=== PATIENT | female | born 1980 | race Caucasian/White ===

== ENCOUNTER 2021-05-06 10:14 | Outpatient (REF) | payer OTHER, SELFPAY ==
--- NOTE | ~2021-05-06 | XR_ITS ---
EXAMINATION: XR HIP, LEFT CLINICAL INFORMATION: Pain COMPARISON: None TECHNIQUE: Two views of the left hip. FINDINGS: Bones and soft tissues are normal. No fracture. Alignment is anatomic. Hip joint space is maintained. XR/XR hip LT min 2V IMPRESSION: Unremarkable left hip exam.
== END 2021-05-06 10:15 | disposition home or self-care (01) ==
LOC: HO.XRAY 10:14
PROVIDERS: PCP Internal Medicine; Visit Provider Internal Medicine
DX: M25.552 Pain in left hip (principal)
CPT/HCPCS: 73502

== ENCOUNTER 2021-10-04 09:00 | Outpatient (RCR) | payer OTHER, SELFPAY | END 2021-10-04 10:11 | disposition home or self-care (01) | LOC: HO.PT 09:00 | PROVIDERS: PCP Internal Medicine; Visit Provider Internal Medicine | DX: M25.552 Pain in left hip (principal) | CPT/HCPCS: 97110; 97112; 97116; 97140; 97162; 97530 ==

== ENCOUNTER 2022-10-14 11:14 | Outpatient (REF) | payer OTHER, SELFPAY ==
--- NOTE | ~2022-10-14 | US_ITS ---
EXAMINATION: US PELVIS CLINICAL INFORMATION: Excessive and frequent menses; the last menstrual period was on 09/17/2022. COMPARISON: None TECHNIQUE: Ultrasound of the pelvis is performed using both transabdominal and transvaginal transducers along with Doppler. Transvaginal imaging is performed due to inadequate visualization transabdominally. FINDINGS: Uterus: The uterus is anteverted and anteflexed. The uterus measures 7.5 x 2.9 x 4.2 cm. Nabothian cysts are seen within the cervix. The double wall endometrial thickness is 0.6 mm. The uterus is smooth in contour and has normal myometrial echogenicity. No visible fibroid. Adnexa: Both ovaries are visualized. There is normal color flow to the adnexa. There is no ovarian torsion. There is no pelvic ascites or fluid collection. Right ovary measures 2.0 x 2.2 x 2.0 cm, volume 4.7 mL. The right ovary contains a dominant benign, simple follicle measuring 1.3 x 1.1 x 1.6 cm. Left ovary measures 2.3 x 1.5 x 1.5 cm, volume 2.8 mL. The left ovary contains a dominant benign, simple follicle measuring 1.3 x 1.4 x 1.3 cm. US/US pelvic and transvaginal IMPRESSION: 1. Benign, simple bilateral ovarian dominant follicles are noted, which require no imaging follow-up. 2. Nabothian cysts are seen within the cervix.
== END 2022-10-14 11:15 | disposition home or self-care (01) ==
LOC: HO.US 11:14
PROVIDERS: Visit Provider Advanced Practice Midwife
DX: N92.1 Excessive and frequent menstruation with irregular cycle (principal)
CPT/HCPCS: 76830; 76856

== ENCOUNTER 2024-05-06 09:07 | Outpatient (REF) | payer OTHER, SELFPAY ==
[2024-05-06 14:21] LABS: MANUAL DIFF FLAG NO
[2024-05-06 14:25] LABS: Basophils Percent Auto 0.5 % (0-2); Eosinophils Absolute Auto 0.1 X10*3/uL (0.0-0.4); Eosinophils Percent Auto 0.8 % (0-4); Hematocrit 43.4 % (37.0-47.0); Hemoglobin 14.6 g/dl (12.0-16.0); Imm Gran Abs Auto 0.02 X10*3/uL (0.00-0.03); Imm Gran Pct Auto 0.3 % (0.0-0.4); Lymphocytes Absolute Auto 1.7 X10*3/uL (1.2-4.9); Lymphocytes Percent Auto 26.6 % (20-40); Mean Corpuscular HGB Conc 33.6 g/dl (31.0-35.0); Mean Corpuscular Hemoglobin 31.7 pg (27.0-33.0); Mean Corpuscular Volume 94.3 fL (80.0-98.0); Mean Platelet Volume 9.6 fL (9.4-12.3); Monocytes Absolute Auto 0.5 X10*3/uL (0.1-1.2); Monocytes Percent Auto 7.7 % (2-11); Neutrophils Percent Auto 64.1 % (45-73); Platelet Count 297 X10*3/uL (160-400); Red Cell Distribution Width 11.8 % (11.0-16.0); White Blood Count 6.3 X10*3/uL (4.8-10.8)
[2024-05-06 15:07] LABS: Alanine Aminotransferase 14 U/L (0-31); Alkaline Phosphatase 46 U/L (39-117); Anion Gap 11 (12-20); Aspartate Amino Transferase 13 U/L (5-31); Bilirubin Total 0.4 mg/dL (0.0-1.0); Blood Urea Nitrogen 14 mg/dL (9-16); Calcium 9.1 mg/dL (8.4-10.2); Carbon Dioxide 26 mmol/L (22-29); Chloride 107 mmol/L (96-108); Cholesterol 188 mg/dL (<200); Estimated Glomerular Filt Rate > 60; Glucose Random 86 mg/dL (60-115); HDL Cholesterol 53 mg/dL (>40); LDL Cholesterol Calculated 120 mg/dL (<100); Potassium 3.6 mmol/L (3.3-5.1); Sodium 140 mmol/L (135-145); Total Protein 6.6 g/dL (6.5-8.0); Triglycerides 78 mg/dL (<150)
== END 2024-05-06 09:08 | disposition home or self-care (01) ==
LOC: HO.CHCLDS 09:07
PROVIDERS: Visit Provider Internal Medicine
DX: Z00.00 Encounter for general adult medical examination without abnormal findings (principal)
CPT/HCPCS: 36415; 80053; 80061; 84443; 85025

== ENCOUNTER 2024-06-07 10:03 | Outpatient (AMB) | payer OTHER, SELFPAY ==
--- NOTE | 2024-06-07 10:28 | A.OFFVIS_ITS ---
Vital Signs 06/07/24 10:39 Height 5 ft 5 in Weight 139 lb BMI 23.1 BP 104/66 Intake Visit Reasons: premenstrual sx/referral Intake Note: Last pap 1yr normal hx @[facility] pt c/o night sweats, cramps, breast tenderness, acne, anger with periods, insomnia week before period Computer Systems Engineer: Computer Systems Engineer Present Allergies penicillamine [Cuprimine] Allergy (Unknown, Verified 06/07/24 10:29) vomiting CILANTRO Allergy (Unknown, Uncoded 08/13/20 19:31) UNKNOWN Is last menstrual period known: Yes Last menstrual period: 05/21/24 HPI Comments Details: Roma is here for a new patient consult referred by her nurse operator ground based air defence from the [facility] to discuss her pre menstrual symptoms and concerns. She reports insomnia onset shortly before her menstrual cycle, sweating, anxiety, and mood changes. Menstrual cycles are regular every 24 days. She tried control low dose in the past, did not like the side effects and felt severely depressed after discontinuing it due to other symptoms. Reports her primary care gave her Paxil, that her made her feel extremely off as though she felt high, and had a sensation of cold water running down her head, and not in a good place and discontinued that medication. Hydroxyzine did not help with her insomnia. She has used Melatonin. She reports prior endometrial biopsy results that was negative. No lab work or ultrasounds or pertinent reports are noted in the referral notes today. She reports a gluten and dairy free diet. She walks daily 30 minutes. [facility] Surgical History (Updated 06/07/24 @ 10:30 by TYSHAWN Diaz) Hx of section Family History (Updated 06/07/24 @ 10:30 by TYSHAWN Diaz) Paternal Grandmother Colon cancer Social History (Updated 06/07/24 @ 10:31 by TYSHAWN Diaz) Alcohol intake: current Alcohol intake frequency: a few times a month Patient Tobacco Use Status: Never used Tobacco Sexual orientation: Straight/Heterosexual Gender identity: Female Female Reproductive History Menstrual Age of Menarche: 11 Duration of menses: 6-7 days Date of last menstrual period: 05/21/24 control method: other (Vasectomy) Total pregnancies: 1 Full term: 1 Number of Living Children: 1 Review of Systems Const All systems reviewed & are unremarkable except as noted in HPI and below Endo Reports no additional complaints Physical Exam Vital Signs: Last Vital Signs BP 104/66 06/07/24 10:39 BMI result Body Mass Index 23.1 Const General: cooperative, healthy appearing and no acute distress Psych Appearance: well kempt Attitude: cooperative Thought process: Normal thought process present Assessment & Plan Assessment & Plan (1) Pre-menstrual syndrome: Code(s): N94.3 - Premenstrual tension syndrome Plan Discussed: Perimenopausal changes, options for treating PMS and menstrual concerns include- OCPs, other modalities for contraception, SSRIs, nutritional and exercise benefits, vitamin, probiotics and homeopathic supplementations. Functional health medicine alternative. Release sign a records for labs ultrasounds biopsies and notes from primary care and her last marketing professor practice or any other pertinent practices. Follow up in 4 months to check her progress or call sooner if there is any concerns. All of her questions and concerns were addressed to the best of my ability and shared decision making. She is agreeable to the plan of care. This note is constructed using voice recognition software. While every effort has been made to ensure accuracy, railroad car inspector errors may have been included. Coding Level of Care Code New Pt Level 3 (18901) Diagnoses Pre-menstrual syndrome N94.3
[2024-06-07 10:39] VITALS: BP 104/66; BMI 23.1
== END 2024-06-07 11:14 | disposition home or self-care (01) ==
LOC: HO.HWS 10:03
PROVIDERS: PCP Internal Medicine; Visit Provider Advanced Practice Midwife
DX: N94.3 Premenstrual tension syndrome (principal)
CPT/HCPCS: 99203

== ENCOUNTER → 2024-06-07 10:03 | Outpatient (BNVA) | payer OTHER, SELFPAY | PROVIDERS: PCP Internal Medicine; Visit Provider Advanced Practice Midwife ==

== ENCOUNTER 2024-12-03 09:05 | Outpatient (AMB) | payer OTHER, SELFPAY ==
--- NOTE | 2024-12-03 09:07 | A.OFFVIS_ITS ---
Intake Visit Reasons: 4 month follow up Credit And Collections Representative: Credit And Collections Representative Present (Ave) Accompanied by: Self / Same As Patient Allergies penicillamine [Cuprimine] Allergy (Unknown, Verified 12/03/24 09:07) vomiting CILANTRO Allergy (Unknown, Uncoded 08/13/20 19:31) UNKNOWN Is last menstrual period known: Yes Last menstrual period: 11/08/24 HPI Comments Details: Patient is here today for a follow up on her premenstrual syndrome symptoms, she reports she is feeling much better after following healthy diet with exercise and starting the supplements for Women's supply hormonal support along with a multivitamin with the Women's Health focus. PFSH Surgical History (Updated 06/07/24 @ 10:30 by TYSHAWN Diaz) Hx of section Family History (Updated 06/07/24 @ 10:30 by TYSHAWN Diaz) Paternal Grandmother Colon cancer Social History (Updated 06/07/24 @ 10:31 by TYSHAWN Diaz) Alcohol intake: current Alcohol intake frequency: a few times a month Patient Tobacco Use Status: Never used Tobacco Sexual orientation: Straight/Heterosexual Gender identity: Female Female Reproductive History Menstrual Age of Menarche: 11 Duration of menses: 3-5 days Date of last menstrual period: 11/08/24 Review of Systems Const All systems reviewed & are unremarkable except as noted in HPI and below Endo Reports no additional complaints Physical Exam Const General: cooperative, healthy appearing and no acute distress Psych Appearance: well kempt Attitude: cooperative Thought process: Normal thought process present Assessment & Plan Assessment & Plan (1) Pre-menstrual syndrome: Code(s): N94.3 - Premenstrual tension syndrome Plan Discussed: Healthy lifestyle, hormonal disruption, multivitamins and supplements. Plan- schedule mammogram, and book an annual exam. The patient expressed understanding and agreement with the plan of care. All of her questions and concerns were addressed to the best of my ability. This note is constructed using voice recognition software. While every effort has been made to ensure accuracy, digital engineer errors may have been included. Orders: Orders MM tomosynthesis screening BI Today Z12.31 - Encounter for screening mammogram for malignant neoplasm of breast Coding Level of Care Code Est Pt Level 3 (70373) Diagnoses Pre-menstrual syndrome N94.3
== END 2024-12-03 10:10 | disposition home or self-care (01) ==
LOC: HO.HWS 09:05
PROVIDERS: PCP Internal Medicine; Visit Provider Advanced Practice Midwife
DX: N94.3 Premenstrual tension syndrome (principal)
CPT/HCPCS: 99213

== ENCOUNTER → 2024-12-25 08:15 | Outpatient (BNV) | payer OTHER, SELFPAY | PROVIDERS: PCP Internal Medicine; Visit Provider Internal Medicine | DX: Z12.31 Encounter for screening mammogram for malignant neoplasm of breast (principal) | CPT/HCPCS: 77063; 77067 ==

== ENCOUNTER 2024-12-25 08:17 | Outpatient (REF) | payer OTHER, SELFPAY | END 2024-12-25 08:18 | disposition home or self-care (01) | LOC: HO.MAMMO 08:17 | PROVIDERS: PCP Internal Medicine; Visit Provider Advanced Practice Midwife | DX: Z12.31 Encounter for screening mammogram for malignant neoplasm of breast (principal) | CPT/HCPCS: 77063; 77067 ==

== ENCOUNTER 2025-03-06 09:03 | Outpatient (AMB) | payer OTHER, SELFPAY ==
--- NOTE | 2025-03-06 09:05 | MHC.OFFVIS ---
Vital Signs 03/06/25 09:07 Height 5 ft 5 in Weight 140 lb BMI 23.3 BP 100/60 Intake Visit Reasons: MEDICAL ACCOUNTS RECEIVABLE SPECIALIST annual exam Open Hearth Stockyard Supervisor: Open Hearth Stockyard Supervisor Present (Vianney) Allergies penicillamine [Cuprimine] Allergy (Unknown, Verified 03/06/25 09:07) vomiting CILANTRO Allergy (Unknown, Uncoded 08/13/20 19:31) UNKNOWN Is last menstrual period known: Yes Last menstrual period: 02/21/25 HPI Comments Details: She is a premenopausal woman presenting for annual examination. Doing well with no smoke and flame specialist concerns. Regular monthly menses, heavy 2/5d. Taking natural supplements for perimenopause, does not want hormones. Currently is sexually active, had a vasectomy. She denies vaginal itching and irritation. STI screening offered; she declines. She tries to eat healthy and stays active with exercise. Denies family history of breast or ovarian. FH colon cancer. Last pap smear 2020, negative per pt. not included with records. Mammogram: 2024. PFSH Surgical History Hx of section Family History Paternal Grandmother Colon cancer Social History Alcohol intake: current Alcohol intake frequency: a few times a month Patient Tobacco Use Status: Never used Tobacco Current occupation: senior designer Sexual orientation: Straight/Heterosexual Gender identity: Female Female Reproductive History Menstrual Age of Menarche: 11 Duration of menses: 3-5 days Date of last menstrual period: 02/21/25 control method: other (vasectomy) Total pregnancies: 1 Full term: 1 Number of Living Children: 1 Date of last pap smear: 08/27/24 (neg pap and hpv) Date of Mammogram: 12/25/24 (Birad 1) Review of Systems Const All systems reviewed & are unremarkable except as noted in HPI and below Reports as per HPI Eyes Reports no additional complaints ENT Reports no additional complaints Card Reports no additional complaints Resp Reports no additional complaints GI Reports as per HPI and Reports no additional complaints Reports as per HPI Musc Reports no additional complaints Skin/Breast Reports as per HPI Neuro Reports no additional complaints Psych Reports no additional complaints Endo Reports no additional complaints Zacarias/Lymph Reports no additional complaints Aller/Immun Reports no additional complaints Physical Exam Vital Signs: Last Vital Signs BP 100/60 03/06/25 09:07 BMI result Body Mass Index 23.3 Const General: cooperative, healthy appearing, no acute distress, well developed and alert Orientation/consciousness: patient oriented x3 HEENT Head: Yes normal to inspection Eyes General: appearance normal, both eyes and all related structures Neck Neck: Yes normal visual inspection Thyroid: Thyroid normal Chest Chest palpation & inspection: normal inspection of the chest and other (no puckering, dimpling, peau de orange, retraction, discharge, masses) Breast/axilla inspection: normal inspection of the breasts Breast/axilla palpation: normal palpation of the breasts Resp Effort & Inspection: normal respiratory effort GI Inspection: Yes normal to inspection Palpation (GI): Soft to palpation Rectal Exam - Female: deferred General: Yes bladder normal to palpation External Female Exam: normal external appearance and normal appearance of the urethra Speculum Exam - Vagina: normal appearance of the vagina, normal palpation and normal vaginal discharge Speculum Exam - Cervix: normal appearance of the cervix and normal palpation Bimanual exam- vagina & uterus: normal bimanual exam, normal palpation, uterine size normal, bladder normal to palpation, normal palpation and non-tender Bimanual Exam- Adnexa, other: no masses Skin General skin exam: no rashes or lesions noted Rashes: no rashes Neuro General: patient oriented x3 Cognition (Neuro): normal cognition Extrem General: Yes normal to inspection Psych Attitude: cooperative Thought process: Normal thought process present Assessment & Plan Assessment & Plan (1) Encounter for well woman exam with routine gynecological exam: Code(s): Z01.419 - Encounter for gynecological examination (general) (routine) without abnormal findings Category: Medical Plan Discussed: Current recommendations for pap smears per ASCCP guidelines. Sign release pap record. Breast awareness and periodic breast exams. Mammogram yearly. Maintain a healthy lifestyle including a well balanced diet and routine exercise. Patient verbalizes understanding and agrees to the plan of care. She was given opportunity to ask questions and all questions were answered to the best of my ability. RTO in one year for annual smoke and flame specialist examination. This note is constructed using voice recognition software. While every effort has been made to ensure accuracy, filling machine operator errors may have been included. Coding Level of Care Code Est Pt Prev Care 40-64y(78645) Diagnoses Encounter for well woman exam with routine gynecological exam Z01.419
[2025-03-06 09:07] VITALS: BP 100/60; BMI 23.3
--- OUTSIDE RECORDS SUMMARY | 2025-03-06 09:37 | XMS_ITS | Encounter Summary ---
Author Organization [employer] Address [address] [place] [address] [address] [place] [address] Care Team Providers Care Cnc Machinist Name Role Phone Urvashi Seymour MD Primary Care Provider [phone] Encounter Details Date Type Department Care Team (Late Contact Info) Description 11/16/2022 Orders Only [facility] [address] [place] [address] Michell Jackson, [facility] [address] [place] [address] Social History Tobacco Use Types Packs/Day Years Used Date Smoking Tobacco: Never Passive Smoke Exposure: Never Smokeless Tobacco: Never Alcohol Use Standard Drinks/Week Comments Never 0 (1 standard drink = 0.6 oz pur e alcohol) Comments Unknown Sex and Gender Information Value Date Recorded Sex Assigned at Female 09/26/2022 10:34 AM EDT Legal Sex Female 10:34 AM EDT Gender Identity Female 09/26/2022 10:34 AM EDT Sexual Orientation Straight 09/26/2022 10 :34 AM EDT COVID-19 Exposure Response Date Recorded In the last 10 days, have yo u been in contact with someone who was confirmed or suspected to have Coronavirus/COVID-19? No / Unsure 11/16/2022 9:51 AM EST documented as of this encounter Plan of Treatment Upcoming Encounters Date Type Department Care Team (Late Contact Info) Description 04/02/2025 10:00 AM EDT Office Visit [facility] [address] [place] [address] Urvashi Seymour MD [address] [place] [address] documented as of this encounter Procedures Procedure Name Priority Date/Time Associated Diagnosis Comments PAP SMEAR Routine 09/25/2018 12:00 AM EDT documented in this encounter Results * Pap Smear (09/25/2018 12:00 AM EDT) Swab us Michell Jackson [facility] ORDERABLES F inal Result [facility] [address] [place] [address] [phone] documented in this encounter Visit Diagnoses Not on filedocumented in this encounter Care Teams Cnc Machinist Relationship Specialty Start Date End Date Urvashi Seymour MD [address] [place] [address] PCP - General Internal Medicine 08/16/18 documented as of this encounter
--- OUTSIDE RECORDS SUMMARY | 2025-03-06 09:37 | XMS_ITS ---
Author Name [facility] Organization Unknown Encounters Encounter Type Encounter Reason Primary Diagnosis Location Date Ambulatory [facility]. ([facility]) 10/26/2024
--- OUTSIDE RECORDS SUMMARY | 2025-03-06 09:37 | XMS_ITS | Encounter Summary ---
Author Organization [employer] Address [address] [place] [address] [address] [place] [address] Care Team Providers Care Geological Technician Name Role Phone Urvashi Seymour MD Primary Care Provider [phone] Encounter Details Date Type Department Care Team ([facility] st Contact Info) Description 06/17/2024 Orders Only [facility] [address] [place], [place] [phone] Urvashi Seymour MD [address] [place] [address] Other insomnia (Primary Dx) Social History Tobacco Use Types Packs/Day Years Used Date Smoking Tobacco: Never Passive Smoke Exposure: Never Smokeless Tobacco: Never Alcohol Use Standard Drinks/Week Comments Not Currently 0 (1 standard drink = 0.6 oz pur e alcohol) Depression Answer Date Recorded Patient Health Questionnaire-9 Score 0 03/26/2024 Patient Health Questionnaire-9 Score 0 03/26/2024 Last PHQ-9: Questionnaire Data Not on file 0 03/26/2024 Housing Stability Answer Date Recorded What is your housing situation today? I have tania orourke 03/26/[address] you li ve. Do you have problems with any of the following? None of the above 03/26/2024 Food Insecurity Answer Date Recorded Within the past 12 months, y ou worried that your food would run out before you got money to buy more: Never True 03/26/2024 Within the past 12 months,th e food you bought just didn't last and you didn't have enough money to get more: Never True Transportation Answer Date Recorded In the past 12 months, has l ack of transportation kept you from medical appts, meetings, work or from getting things needed for daily living? No 03/26/2024 Utilities Answer Date Recorded In the past 12 months, has t he electric, gas, oil or water company threatened to shut off services in your home? No 03/26/2024 Depression Answer Date Recorded Patient Health Questionnaire-2 Score 0 03/26/2024 Comments Unknown Sex and Gender Information Value Date Recorded Sex Assigned at Female 09/26/2022 10:34 AM EDT Legal Sex Female 10:34 AM EDT Gender Identity Female 09/26/2022 10:34 AM EDT Sexual Orientation Straight 09/26/2022 10 :34 AM EDT documented as of this encounter Plan of Treatment Upcoming Encounters Date Type Department Care Team ([facility] st Contact Info) Description 04/02/2025 10:00 AM EDT Office Visit [facility] [address] [place] [address] Urvashi Seymour MD [address] [place] [address] documented as of this encounter Visit Diagnoses Diagnosis Other insomnia- Primary documented in this encounter Additional Health Concerns Assessment Noted Time PHQ-9 Depression Total Score: 0 03/26/20 24 9:24 AM EDT documented as of this encounter Care Teams Geological Technician Relationship Specialty Start Date End Date Urvashi Seymour MD [address] [place] [address] PCP - General Internal Medicine 08/16/18 documented as of this encounter
--- OUTSIDE RECORDS SUMMARY | 2025-03-06 09:37 | XMS_ITS | Clinical Summary ---
Author Organization [employer] Address [address] [place] [address] 7 [place] [address] Care Team Providers Care Technical Healthcare Consultant Name Role Phone Urvashi Seymour MD Primary Care Provider Allergies Active Allergy Reactions Criticality Noted Date Comments Parsley Seed 01/10/2023 Also cilantro Penicillins 08/16/2018 Other reaction(s): Vomiting Medications melatonin 5 MG tabletIndicatio ns:Other insomnia TAKE 1 TABLET BY MOUTH EVERY DAY AT BEDTIME 90 tablet 1 07/15/2024 Active Active Problems Problem Noted Date Diagnosed Date Abnormal uterine bleeding 12/22/2022 Assessment & Plan (12/22/2022 4:32 PM EST): Proceed to procedure given AUB in the setting of her age, could be premenopause, reviewed US results. Tolerated procedure well. Will send to pathology and followup results. Vasospasm 12/21/2022 Encounters Date Type Department Care Team Description 12/25/2024 Orders Only [facility] External Provider, [facility] from Last 3 Months Immunizations Name Administration Dates Next Due Influenza injectable quadriv alent IIV4 with preservative 09/07/2020,08/16/2018 Influenza injectable quadrivalent preservative f ree 08/03/2022,09/07/2021 Tdap 08/03/2022 Family History Medical History Relation Name Comments Heart disease Father smoker Father Psoriasis Mother psoriasis arthritis Mother Prostate cancer Paternal Grandfather Colon cancer Paternal Grandmother Hypertension Sister Thyroid disease Sister Relation Name Status Comments Father Mother Paternal Grandfather Paternal Grandmother Sister Social History Tobacco Use Types Packs/Day Years Used Date Smoking Tobacco: Never Passive Smoke Exposure: Never Smokeless Tobacco: Never Tobacco Cessation:Counseling Given: No Alcohol Use Standard Drinks/Week Comments Not Currently [...] Orientation Straight 09/26/2022 10 :34 AM EDT Last Filed Vital Signs Vital Sign Reading Time Taken Comments Blood Pressure 123/80 05/21/2024 9:23 AM EDT Pulse 89 05/21/2024 9:23 AM EDT Temperature 36.3 ??C (97.3 ??F) 05/21/2024 9:23 AM ED T Respiratory Rate 19 05/21/2024 9:23 AM EDT Oxygen Saturation 99% 05/21/2024 9:23 AM EDT Inhaled Oxygen Concentration - - Weight 63.5 kg (140 lb) 05/21/2024 9:23 AM EDT Height 167 cm (5' 5.75 ) 05/21/2024 9:23 AM EDT Body Mass Index 22.77 05/21/2024 9:23 AM EDT Plan of Treatment Upcoming Encounters Date Type Department Care Team ([facility] st Contact Info) Description 04/02/2025 10:00 AM EDT Office Visit [facility] [address] [place] [address] Urvashi Seymour MD [address] [place] [address] Health Maintenance Due Date Last Done Comments CT Colonography 1978 Colonoscopy 1978 FIT 1978 FOBT 1978 Sigmoidoscopy 1978 Alcohol/Substance Use Screening 1990 Family Planning (PISQ) 1993 Hepatitis C Screening 1996 COVID-19 Vaccine ( season) 2024 10/10/2023, 09/15/2022, 10/14/2021, Additional history exists Pap Smear 09/07/2024 09/07/2021, 08/27, 09/25/2018 Depression Screening 03/26/2025 03/26/2024, 03/26/20 24 Hepatitis B Vaccines (1 of 3 - 19+ 3-dose series) 03/26/2025 Postponed from 1997 (Patient Refused) SDOH Screening 03/26/2025 03/26/2024 Tobacco Screening 05/21/2025 05/21/2024 Cervical Cancer Screening 09/07/2026 HPV/Cotest 09/07/2026 09/07/2021, 09/25/2018 Mammogram 12/25/2026 12/25/2024 Colorectal Cancer Screening 04/11/2027 FIT DNA/Cologuard 04/11/2027 04/11/2024 Zoster Vaccines (1 of 2) 2028 DTaP/Tdap/Td Vaccines (2 - Td or Tdap) 08/03/2032 08/03/2022 RSV Patients and Patients Aged 60 years or older (1 - 1-dose 75+ series) 2053 Influenza Vaccine Completed 01/19/2025, , 09/07/2021, Additional history exists HIB Vaccines Aged Out No longer eligi ble based on patient's age to complete this topic HIV Screening Discontinued HPV Vaccines Aged Out No longer eligi ble based on patient's age to complete this topic Hepatitis A Vaccines Aged Out No long er eligible based on patient's age to complete this topic IPV Vaccines Aged Out No longer eligi ble based on patient's age to complete this topic Meningococcal Vaccine Aged Out No obdulio addison eligible based on patient's age to complete this topic Pneumococcal Vaccine: Pediatrics (0 to 5 Years) and At-Risk Patients (6 to 49) Years) Aged Out No longer eligible based on patient's age to complete this topic RSV under 20 months Aged Out No longe r eligible based on patient's age to complete this topic Rotavirus Vaccines Aged Out No longer eligible based on patient's age to complete this topic Procedures Procedure Name Priority Date/Time Associated Diagnosis Comments BI MAMMOGRAM SCREENING TOMOSYNTHESIS BILATERAL Routine 12/25/2024 8:21 AM EST LAB COLOGUARD?? COLON CANCER SCREEN Routine 04/11/2024 7:50 AM EDT Screening for colon cancer HPV MRNA E6/E7 Routine 09/07/2021 9:46 AM EDT PAP SMEAR Routine 09/07/2021 12:00 AM EDT from Last 3 Months or Most Recently Relevant to Health Maintenance Results * BI Mammogram Screening Tomosynthesis Bilateral (12/25/2024 8:21 AM EST) Anatomical Region Laterality Modality Breast Bilateral Mammography 12/25/2024 8:21 AM EST Narrative 01/04/2025 3:48 PM EST ? [facility] ? [address] ?[place] [address] ? Mammography Report ? Signed ? Patient: Roseanne,Chinmay ?MR#: [id number] ?? 27 ? : 1980 ?Acct:[id number] ? Age/Sex: 44 / F ?ADM Date: /29/25 ? Loc: HO.MAMMO ? Attending Dr: Mary Ames CNM ? Ordering Physician: Mary Ames CNM ?Results: 1Nega ?? tive ? Date of Service: 12/25/24 ?Follow Up: 1 Year From Orig ?? inal Mammogram ? Procedure(s): MM tomosynthesis screening BI ?? Accession Number(s): [id number] ? cc: Urvashi Seymour MD; Mary Ames CNM ? EXAMINATION: ?? MM SCREENING DIGITAL BREAST TOMOSYNTHESIS, BILATERAL ? CLINICAL INFORMATION: ? Screening. Asymptomatic. ? COMPARISON: ?? Mammography: Comparison is made with available priors ? TECHNIQUE: ?? Digital breast mammography with tomosynthesis is performed in both the ?? craniocaudal and mediolateral oblique views along with computer-aided ?? detection (CAD). ? FINDINGS: ?? The breasts are heterogeneously dense, which may obscure small masses ?? (ACR BI-RADS breast composition Category c). ? There are no significant masses, abnormal calcifications, or other ?? abnormalities. ? MM/MM tomosynthesis screening BI ?? IMPRESSION: ?? No mammographic evidence of malignancy. ? ASSESSMENT: ? BI-RADS BI-RADS 1 - Negative ? RECOMMENDATION: ?? Routine annual mammography screening. ? 1 year F/U ? This examination should not preclude the clinical evaluation of a ?? suspicious palpable abnormality. ? This patient's information was entered into a reminder system with a ?? target due date for their next mammogram. ? Electronically signed by: ??Kathrine Jaeger DO ??01/04/2025 03:45 PM EST ?? RP ? Dictated By: ?Kathrine Jaeger DO ? Signed By: ?<Electronically signed by Kathrine Jaeger, DO in OV> ? 01/04/25 1545 ? DD/ 0821 ? TD/TT: 12/25/24 0849 ? Electrical Prospecting Operator: ? Procedure Note Donotjeffter, Image - 01/04/2025 [facility] [address] [place], [place] [address] Mammography Report Signed Patient: Chinmay CroninMR#: [id number] 27 : 1980Acct:[id number] Age/Sex: 44 / FADM Date: 12/25/24 Loc: HO.MAMMO Attending Dr: Mary Ames CNM Ordering Physician: Mary Amesesults: 1Nega tive Date of Service: 12/25/24Follow Up: 1 Year From Orig inal Mammogram Procedure(s): MM tomosynthesis screening BI Accession Number(s): [id number] cc: Urvashi Seymour MD; Mary Ames CNM EXAMINATION: MM SCREENING DIGITAL BREAST TOMOSYNTHESIS, BILATERAL CLINICAL INFORMATION: Screening. Asymptomatic. COMPARISON: Mammography: Comparison is made with available priors TECHNIQUE: Digital breast mammography with tomosynthesis is performed in both the craniocaudal and mediolateral oblique views along with computer-aided detection (CAD). FINDINGS: The breasts are heterogeneously dense, which may obscure small masses (ACR BI-RADS breast composition Category c). There are no significant masses, abnormal calcifications, or other abnormalities. MM/MM tomosynthesis screening BI IMPRESSION: No mammographic evidence of malignancy. ASSESSMENT: BI-RADS BI-RADS 1 - Negative RECOMMENDATION: Routine annual mammography screening. 1 year F/U This examination should not preclude the clinical evaluation of a suspicious palpable abnormality. This patient's information was entered into a reminder system with a target due date for their next mammogram. Electronically signed by: Kathrine Jaeger DO 01/04/2025 03:45 PM EST Dictated By: Kathrine Jaeger DO Signed By: <Electronically signed by Kathrine Jaeger DO in OV> 01/04/25 1545 DD/ 0821 TD/TT: 12/25/24 0849 Electrical Prospecting Operator: [facility] External Provider IMG BI PROCEDURES Edited Result - Final * Cologuard?? colon cancer screening (04/11/2024 7:50 AM EDT) Cologuard Result Negative Negative 04/18/20 10:01 AM EDT [facility] (CLIA #:[id number]) Comment: NEGATIVE TEST RESULT. A negative Cologuard result indicates a low likelihood that a colorectal cancer (CRC) or advanced adenoma (adenomatous polyps with more advanced pre-malignant features) ??is present. The chance that a person with a negative Cologuard test has a colorectal cancer is less than 1 in 1500 (negative predictive value >99.9%) or has an ??advanced adenoma is less than ??5.3% (negative predictive value 94.7%). These data are based on a prospective cross-sectional study of 10,000 individuals at average risk for colorectal cancer who were screened with both Cologuard and colonoscopy. (James Sol al, N Engl J Med 2014;370(14):1286- 1297) The normal value (reference range) for this assay is negative. COLOGUARD RE-SCREENING RECOMMENDATION: Periodic colorectal cancer screening is an important part of preventive healthcare for asymptomatic individuals at average risk for colorectal cancer. ??Following a negative Cologuard result, the [place] Cancer Society and U.S. Multi-Society Task Force screening guidelines recommend a Cologuard re-screening interval of 3 years. References: [place] [employer] Society Guideline for Colorectal Cancer Screening: https://www.cancer.org/cancer/wpzxd-jtnihw-sslzba/oyrldxvgh-mtjumlkff-utdgkng/ac s-rec ommendations.html.; Rocael DK, Avelina CR, Sarah MirandaK, Colorectal Cancer Screening: Recommendations for Physicians and Patients from the U.S. Multi-Society Task Force on Colorectal Cancer Screening , Am J Gastroenterology 2017; 112:3190-7492. TEST DESCRIPTION: Composite algorithmic analysis of stool DNA-biomarkers with hemoglobin immunoassay. ?? Quantitative values of individual biomarkers are not reportable and are not associated with individual biomarker result reference ranges. Cologuard is intended for colorectal cancer screening of adults of either sex, 45 years or older, who are at average-risk for colorectal cancer (CRC). Cologuard has been approved for use by the U.S. FDA. The performance of Cologuard was established in a cross sectional study of average-risk adults aged 50-84. Cologuard performance in patients ages 45 to 49 years was estimated by sub-group analysis of near-age groups. Colonoscopies performed for a positive result may find as the most clinically significant lesion: colorectal cancer [4.0%], advanced adenoma (including sessile serrated polyps greater than or equal to 1cm diameter) [20%] or non- advanced adenoma [31%]; or no colorectal neoplasia [45%]. These estimates are derived from a prospective cross-sectional screening study of 10,000 individuals at average risk for colorectal cancer who were screened with both Cologuard and colonoscopy. (James Sol al, N Engl J Med 2014;370(14):9437-1596.) Cologuard may produce a false negative or false positive result (no colorectal cancer or precancerous polyp present at colonoscopy follow up). A negative Cologuard test result does not guarantee the absence of CRC or advanced adenoma (pre-cancer). The current Cologuard screening interval is every 3 years. ([place] Cancer Society and U.S. Multi-Society Task Force). Cologuard performance data in a 10,000 patient pivotal study using colonoscopy as the reference method can be accessed at the following location: www.Webvanta.Cigital/results. Additional description of the Cologuard test process, warnings and precautions can be found at www.DCWafersrd.com. Stool specimen (specimen) 04/11/2024 7:50 AM EDT 04/13/2024 7:20 AM EDT Urvashi Seymour MD LAB MOLECULAR DIAGNOSTICS O RDERABLES Final Result [facility] (CLIA #:[id number]) [place] [address], * HPV mRNA E6/E7 (09/07/2021 9:46 AM EDT) HPV nRNA E6/E7 Not Detected Not Detected [facility] Comment: Methodology: Regulatory And Compliance Technician-Mediated Amplification This assay detects E6/E7 viral messenger RNA (mRNA) from 14 high-risk HPV types (16,18,31,33,35,39,45,51,52,56,58,59,66,68). ? The analytical performance characteristics of this assay have been determined by [employer]. The modifications have not been cleared or approved by the FDA. This assay has been validated pursuant to the CLIA regulations and is used for clinical purposes. ?? For additional information, please refer to http://education.Gluster/faq/XYY487r3 (This link if provided for information/ educational purposes only.) 09/07/2021 9:46 AM EDT Michell RICHARD LAB BLOOD ORDERABLES Saba l Result Performing Organization Address [facility] Co de Phone Number [facility] [address] * Pap Smear (09/07/2021 12:00 AM EDT) Swab Michell RICHARD LAB CYTOLOGY ORDERABLES F inal Result [facility] [address], [place] [address] from Last 3 Months or Most Recently Relevant to Health Maintenance Insurance [facility] , [address] [place] [address] Care Teams Technical Healthcare Consultant Relationship Specialty Start Date End Date Urvashi Seymour MD [address] [place] [id number] PCP - General Internal Medicine 08/16/18
--- OUTSIDE RECORDS SUMMARY | 2025-03-06 09:37 | XMS_ITS | Data Portability ---
Author Organization [facility], [address] Address [address] [place] [address] Assessment No assessment recorded. Plan of Treatment Reminders Order Date Submit Date Provider Last Modified By Organization Details Last Modified Time Details Appointments None recorded. Lab None recorded. Referral None recorded. Procedures None recorded. Surgeries None recorded. Imaging None recorded. Medication Orders Paxlovid 300 mg (150 mg x 2)-100 mg tablets in a dose pack 2023 024 [id number], [address], [place], [id number], 19:10:39 Patient TargetsNo targets recorded. Patient Instructions Encounter Date Encounter Id Patient Instructions Last Modified By Organization Details Last Modified Time 10/26/2024 [id number] coronavirus (covid-19): care instructions [email or web address] Not available 10/26/2024 19:05:39 Coronavirus (COVID-19) in Children: Care Instructions [email or web address] Not available 10/26/2024 19:05:39 You were seen today for cold symptoms and COVID-19 Positive. ? ? ?Recommendation as below: ? ? ? - Paxlovid 3 tabs twice a day for 5 days. - Delsym or Dayquil as needed for cough -Tylenol 1000 mg every 6 hours as needed for pain/fever/body aches -Drink plenty of fluid and get plenty of rest -Isolate for 5 days since symptom onset followed by 5 days of wearing a mask in public place. -Return to urgent care if worsening symptoms [email or web address] Not available 10/26/2024 19:05:38 Reason for Referral None Reported. Problems Name Problem SNOMED Code Status Onset Date Resolution Date Notes Provider Name and Address Organization Details Recorded Time Acute COVID-1 9 [id number] Active 024 KHOA LAMAS [place], [address] , [place] - [facility] 10/26/2024 19:04:13 Problem Notes None recorded. Medical Equipment None Reported. Allergies Allergen ID Allergen Name Allergen Category Reaction Reaction Severity Criticality Documentation Date Start Date Code Code System Note Provider Name and Address Organization Details Recorded Time [id number] Product containin g penicilli n (product) medicatio n Not available Not available Not available 10/26/2024 82458 8001 SNOMED Joanie Hornick null, [place] - [facility] 18:52:57 Medications Name Sig Start Date Stop Date Status Note LastModified by Organization Details LastModified Time paroxetine 10 mg tablet 10/26 completed Not Available Not Available Not Available hydroxyzine pamoate 25 mg capsule 10/26 completed Not Available Not Available Not Available Paxlovid 300 mg (150 mg x 2)-100 mg tablets in a dose pack TK 2 NIRMATREL VIR TS AND 1 RITONAVIR T TOGETHER PO BID FOR 5 DAYS active Not Available Not Available No t Available Vitals Date Recorded Body height Body mass index (BMI) Body weight Oxygen saturation Oxygen saturation in Arterial blood by Pulse oximetry Heart rate Respiratory rate Body temperature Pain severity - 0-10 verbal numeric rating [Score] - Reported Systolic blood pressure Diastolic blood pressure Provider Name and Address Organization Details Last Updated DateTime 165.1 cm 23 kg/m2 87398.7 5 g 98 % 98 % 84 /min 16 /min 98.1 [degF] 0 139 mm[Hg] 82 mm[Hg] Joanie Hornick PA - [facility] 18:54:50 Social History Question Answer Notes LastModified by Organizat ion Details LastModified Time Tobacco Smoking Status Never Smoker Joanie Hornick null, [place] - [facility] 10/26/2024 18:54:22 What Is Your Level Of Alcohol Consumption? Occasional Information not available 10/26/2024 Have You Had A Flu Shot This Season? No Information not available 10/26/2024 If No, Would You Like A Flu Shot Today? No Information not available 10/26/2024 Do You Use Any Illicit Or Recreational Drugs? No Information not available 10/26/2024 Have You Recently Traveled Abroad? No Information not available 10/26/2024 Do You Or Have You Ever Used Any Other Forms Of Tobacco Or Nicotine? No Information not available 10/26/2024 Sex: Unknown Functional Status None recorded. Mental Status None recorded. Family History Relationship Description Onset Age of this Age Resolved Age Notes LastModified by Organization Details LastModified Time Father No current problems or disability Not available 10/26 18:54:11 Mother No current problems or disability Not available 10/26 18:54:11 Medical History No medical history recorded. Gynecological History Statement/Question Response Date of LMP 10/19/2024 Obstetrics History GPAL:G 0 P 0 0 0 0 Past Encounters Encounter ID Performer Location Encounter Start Date Encounter Closed Date Diagnosis/Indication Diagnosis SNOMED-CT Code Diagnosis ICD10 Code Diagnosis [place] [id number] [place] [address] [place] [address] 10/26/2024 17:39:06 10/26/2024 19:06:34 Acute COVID-19 [id number] U07.1 Positive at home. Health Concerns Section Related Observation LastModified by Organization Detai ls LastModified Time None Recorded Concern Status LastModified by Organization Details LastModified Time None Recorded Advance Directives Directive None Recorded Payers Encounter Date Sequence Insurance Name Policy Number Policy Arellano Covered Member ID Arellano Member ID Guarantor Name 10/26/[address] [place] [address] [id number] [facility] [id number] [facility] Notes Date Note Type Note Provider Name and Address Organization Details Recorded Time 10/26/2024 text/html COVID-19 SymptomsReported bypatient.Notes:Positi ve COVID-19 at home today. Runny nose yesterday. Cough, WALLACE and body aches today. + as well. KHOA LAMAS MD [address] [place], [address], [place] - [facility] 10/26/2024 19:06:05 OBGyn Episode No OBEpisode recorded.
== END 2025-03-06 10:54 | disposition home or self-care (01) ==
LOC: HO.HWS 09:03
PROVIDERS: PCP Internal Medicine; Visit Provider Advanced Practice Midwife
DX: Z01.419 Encounter for gynecological examination (general) (routine) without abnormal findings (principal)
CPT/HCPCS: 99396; 99459

== ENCOUNTER → 2025-03-06 09:03 | Outpatient (BNVA) | payer OTHER, SELFPAY | PROVIDERS: PCP Internal Medicine; Visit Provider Advanced Practice Midwife ==